=== PATIENT | female | born 1950 | race Caucasian/White ===

== ENCOUNTER 2025-07-15 10:33 | Outpatient (CLI) | payer MEDICARE | END 2025-07-15 10:34 | disposition home or self-care (01) | LOC: SCSMRI 10:33 | PROVIDERS: ATTEND Orthopaedic Surgery | DX: M47.26 Other spondylosis with radiculopathy, lumbar region (principal); M47.814 Spondylosis without myelopathy or radiculopathy, thoracic region; M51.34 Other intervertebral disc degeneration, thoracic region; M51.16 Intervertebral disc disorders with radiculopathy, lumbar region; M48.061 Spinal stenosis, lumbar region without neurogenic claudication; M43.16 Spondylolisthesis, lumbar region | CPT/HCPCS: 72148 ==